=== PATIENT | female | born 1970 | race Caucasian/White ===

== ENCOUNTER 2020-04-13 13:50 | Outpatient (REF) | payer BC, SELFPAY ==
[2020-05-01 21:52] LABS: HPV mRNA E6/E7 rflx Not Detected (Not Detected)
== END 2020-04-13 13:51 | disposition home or self-care (01) ==
LOC: HO.LAB 13:50
PROVIDERS: Visit Provider Advanced Practice Midwife
DX: Z12.4 Encounter for screening for malignant neoplasm of cervix (principal)
CPT/HCPCS: 36415; 87624; 88141; 88142

== ENCOUNTER 2020-07-07 15:35 | Outpatient (REF) | payer BC, SELFPAY ==
--- NOTE | ~2020-07-07 | MM_ITS ---
EXAMINATION: MM SCREENING DIGITAL BREAST TOMOSYNTHESIS, BILATERAL CLINICAL INFORMATION: Screening. Asymptomatic. The lifetime risk of breast cancer based on the Tyrer-Cuzick Model is 14%. COMPARISON: Mammography: 04/20/2019, 04/14/2018, 07/30/2010 TECHNIQUE: Digital breast tomosynthesis is performed in both the craniocaudal and mediolateral oblique views along with computer-aided detection (CAD). Synthesized 2D images are generated from the tomosynthesis. FINDINGS: The breasts are heterogeneously dense, which may obscure small masses (ACR BI-RADS breast composition Category c). There is no developing density or interval mass or architectural abnormality. Again, there are some punctate calcifications in the upper outer right breast. There is a new coarse calcification on the right. The axilla and skin contours are unremarkable. No significant changes from prior exams. MM/MM tomosynthesis screening BI IMPRESSION: No significant changes from prior study. ASSESSMENT: BI-RADS 2: Benign RECOMMENDATION: Routine annual mammography screening. This patient's information was entered into a reminder system with a target due date for their next mammogram.
== END 2020-07-07 15:36 | disposition home or self-care (01) ==
LOC: HO.MAMMO 15:35
PROVIDERS: Visit Provider Advanced Practice Midwife
DX: Z12.31 Encounter for screening mammogram for malignant neoplasm of breast (principal)
CPT/HCPCS: 77063; 77067

== ENCOUNTER → 2021-06-21 14:33 | Outpatient (BNVA) | payer BC, SELFPAY | PROVIDERS: Visit Provider Advanced Practice Midwife | DX: Z13.89 Encounter for screening for other disorder (principal) ==

== ENCOUNTER 2021-07-11 15:06 | Outpatient (REF) | payer BC, SELFPAY ==
--- NOTE | ~2021-07-11 | US_ITS ---
EXAMINATION: US PELVIS TRANSVAGINAL CLINICAL INFORMATION: Abdominal and pelvic swelling. Ovarian cyst. COMPARISON: 01/14/2016 TECHNIQUE: Transcutaneous and transvaginal pelvic ultrasound. Transvaginal scanning was performed after voiding to better evaluate the endometrium and adnexa. FINDINGS: The uterus measures 11 x 7.4 x 8.1 cm. The uterus is anteverted. No suspicious abnormalities region of the cervix. Nabothian cysts are present. The endometrium measures 0.7 cm. There is trace fluid seen within the endometrial canal. There are numerous heterogeneous and isoechoic masses within the myometrium consistent with fibroids: Within the right lower uterine segment, there is a 1.0 x 1.2 x 1.5 cm fibroid not imaged previously. Within the right lower uterine segment, there is a 2.5 x 2.3 x 2.2 cm fibroid which previously measured 2.6 x 1.8 x 1.6 cm in size. About the posterior uterine body, there is a 1.8 x 1.7 x 2.0 cm fibroid which previously measured 1.3 x 1.0 x 1.6 cm in size. Within the right upper uterine body, there is a 3.7 x 3.1 x 3.4 cm fibroid not previously imaged. About the right upper uterine body, there is a 2.2 x 1.4 x 1.2 cm fibroid not imaged previously. About the left upper uterine body/fundus, there is a 1.8 x 1.4 x 1.8 cm fibroid not previously imaged. About the left upper uterine body/fundus, there is a 1.9 x 2.0 x 1.5 cm fibroid not previously included on imaging. About the uterine fundus, there is a 1.5 x 1.4 x 1.4 cm fibroid that was not included in previous imaging. The patient is status post right oophorectomy with no suspicious right adnexal findings. The left ovary measures 2.8 x 1.6 x 2.3 cm. The calculated left ovarian volume is approximately 5.4 mL. No suspicious left adnexal findings. No significant free pelvic fluid. US/US pelvic and transvaginal IMPRESSION: Fibroid uterus with evidence for increase in size since prior study. Status post right oophorectomy. Some of the fibroids appear to be submucosal and some subserosal but difficult to evaluate well.
[2021-07-11 17:29] LABS: Hematocrit 37.9 % (37.0-47.0); Hemoglobin 12.4 g/dl (12.0-16.0); Mean Corpuscular HGB Conc 32.7 g/dl (31.0-35.0); Mean Corpuscular Hemoglobin 29.4 pg (27.0-33.0); Mean Corpuscular Volume 89.8 fL (80.0-98.0); Mean Platelet Volume 10.5 fL (9.4-12.3); Platelet Count 293 X10*3/uL (160-400); Red Blood Count 4.22 X10*6/uL (4.20-5.50); Red Cell Distribution Width 12.9 % (11.0-16.0); White Blood Count 6.5 X10*3/uL (4.8-10.8)
[2021-07-11 18:10] LABS: Thyroid Stimulating Hormone 1.18 uIU/mL (0.32-4.0)
[2021-07-13 01:26] LABS: Follicle Stimulating Hormone 7.5 mIU/mL
== END 2021-07-11 15:07 | disposition home or self-care (01) ==
LOC: HO.US 15:06
PROVIDERS: Visit Provider Advanced Practice Midwife
DX: R19.00 Intra-abdominal and pelvic swelling, mass and lump, unspecified site (principal); N92.1 Excessive and frequent menstruation with irregular cycle; R23.2 Flushing
CPT/HCPCS: 36415; 76830; 76856; 83001; 84443; 85027

== ENCOUNTER → 2021-07-31 14:49 | Outpatient (BNVA) | payer BC, SELFPAY | PROVIDERS: Visit Provider Advanced Practice Midwife | DX: Z13.89 Encounter for screening for other disorder (principal) ==